=== PATIENT | female | born 1985 | race Caucasian/White ===

== ENCOUNTER 2018-04-05 13:57 | Emergency (ER) | payer SELFPAY ==
[2018-04-05] MEDS ORDERED: Ketorolac Tromethamine 30 MG/ML VIAL ONE (15:31)
--- NOTE | 2018-04-05 16:06 | RAD ---
4 VIEWS LEFT KNEE: Date: 04/05/18 COMPARISON: None. HISTORY: Left knee pain. FINDINGS: Four views of the left knee show no evidence of acute fracture or dislocation. No knee effusion is se en. No degenerative changes are present. IMPRESSION: Unremarkable exam. POS: [facility]
== END 2018-04-05 17:57 | disposition home or self-care (01) ==
LOC: ERS 13:57
DX: M25.562 Pain in left knee (principal)
CPT/HCPCS: 96372; J1885

== ENCOUNTER 2019-05-02 10:06 | Emergency (ER) | payer SELFPAY ==
[2019-05-02 10:40] LABS: Bilirubin 1+ (Negative); Blood, Urine Negative (Negative); Clarity Clear (Clear); Glucose, Urine (Dipstick) Normal (Negative); Leukocyte Negative Leu/uL (Negative); Nitrite 2+ (Negative); Pregnancy Test - Urine (BHCG) Negative (Negative); Pregu Control Background? CLEAR/WHITE (CLR/WHITE); Pregu Control Bar Appear? YES (CONTROL BAR); Protein, Urine (Dipstick) 20 mg/dL (Neg-Trace); Specific Gravity 1.014 (1.002-1.036); Urobilinogen 3 mg/dL (Less than 2)
[2019-05-02 10:41] LABS: Bacteria/HPF 1+ HPF (None Seen)
[2019-05-02 10:54] LABS: #Eosinphils 0.1 thou/uL (0.0-0.7); #Lymphocytes 1.3 thou/uL (1.20-3.40); #Monocytes 0.8 thou/uL (0.11-0.59); %Basophils 0.2 % (0.0-1.0); %Eosinophils 0.4 % (0.0-10.0); %Monocytes 5.6 % (0.0-10.0); %Neutrophils 84.7 % (42.0-75.0); Hemoglobin 12.8 g/dL (12.0-16.0); Mean Corpuscular HGB CONC 33.4 g/dL (32.0-36.0); Mean Corpuscular Hemoglobin 31.9 pg (27.0-31.0); Mean Corpuscular Volume 95.5 fL (78.0-98.0); Mean Platelet Volume 7.3 fL (7.4-10.4); Platelet Count 192 thou/uL (130-400); RBC Distribution Width 12.1 % (11.5-14.5); Red Blood Cell (RBC) Count 4.02 mill/uL (4.20-5.40); White Blood Cell (WBC) Count 14.1 thou/uL (4.8-10.8)
[2019-05-02 11:12] LABS: ALT (SGPT) 96 U/L (8-55); AST (SGOT) 41 U/L (5-34); Albumin 4.1 g/dL (3.5-5.0); Alkaline Phosphatase 74 U/L (40-110); Anion Gap 13 mmol/L (10-20); BUN (Urea Nitrogen) 12 mg/dL (7.0-18.7); Bilirubin, Total 0.6 mg/dL (0.2-1.2); Calc. Creatinine Clearance 0 mL/min (70-130); Carbon Dioxide 25 mmol/L (22-29); Chloride 104 mmol/L (98-107); Estimated GFR-MDRD 67; Globulin 2.5 g/dL (2.4-3.5); Glucose 102 mg/dL (70-105); Lipase 6 U/L (8-78); Potassium 4.4 mmol/L (3.5-5.1); Protein, Total 6.6 g/dL (6.0-8.3); Sodium 138 mmol/L (136-145)
--- NOTE | 2019-05-02 12:33 | CT ---
CT Stone Protocol HISTORY: Hematuria and flank pain. COMPARISON: None. FINDINGS: Subsegmental atelectatic changes seen in the lung bases. The liver, spleen, pancreas and gallbladder regions are unremarkable given the limitations of a nonco ntrast exam. Right and left adrenal glands and right and left kidneys are normal in size. There is no evidence of obstruction, renal or ureteral calculi. No perinephric inflammatory change. No significant periaortic or mesenteric adenopathy. CT of pelvis performed without contrast enhancement: There is some trace free fluid in the cul-de-sac . The appendix is normal. The bladder is normal in position. No bladder wall thickening. IMPRESSION: No acute findings of abdomen or pelvis.
[2019-05-02] MEDS ORDERED: cefTRIAXone\\ROCEPHIN 1 GM VIAL ONE ×2 (13:22→13:31)
[2019-05-02] MEDS ORDERED: Azithromycin 250 MG TAB ONE (13:22)
[2019-05-02] MEDS ORDERED: Lidocaine 1% PF 5 ML VIAL ONE (13:22)
[2019-05-02] MEDS ORDERED: Acetaminophen 500 MG TAB ONE ×2 (13:30)
[2019-05-02] MEDS ORDERED: Ondansetron PF 4 MG/2 ML Vial ONE (14:12)
[2019-05-03 18:41] LABS: Chlamydia by PCR Not Detected (NotDetected); GC by PCR Not Detected (NotDetected)
== END 2019-05-02 15:05 | disposition home or self-care (01) ==
LOC: ERS 10:06
DX: N12 Tubulo-interstitial nephritis, not specified as acute or chronic (principal)
CPT/HCPCS: 36415; 74176; 80053; 81003; 81015; 81025; 83690; 85025; 87491; 87591; 96365; 96375; J0696; J2001; J2405

== ENCOUNTER 2019-08-14 19:54 | Inpatient (IN) | payer BC, SELFPAY ==
[2019-08-14 22:40] VITALS: BMI 29.9
--- NOTE | 2019-08-14 22:48 | PDOC.FPRHP ---
- History of Present Illness Chief Complaint: shortness of breath, tx for PE History of Present Illness: 33yo F with h/o Hep C and IV drug abuse in remission presents as direct admit from outside ER for PE's. Patient states she has had 2 days of fatigue, chills, body aches. No fever, cough, congestion, rhinorrhea, n/v, abd michael, diarrhea/ constipation. She then experienced an acute onset of shortness of breath, substernal CP pulling sensation at 1100. Took 4 motrin, 4 ASA, and 2 Tums with resolution of pain on way to ED. Currently states is sx free. Patient states recent plane trip back from [facility] [place] on 07/25, 21 hour plane ride. Began ill with URI sxs 2 days prior to departure and thus spent entire plane trip in chair without ambulation. She then arrived back home with sxs and was seen at [facility] where she was diagnosed with Flu A and treated with Tamiflu x5d. She was quarantined for 4 days in a hotel room by her boss and to prevent spread of illness to family. Pt recovered from acute illness and was at baseline health until acute episode. Pt denies any recent surgery, no personal or family history of PE/DVT, no miscarriages, not on any hormonal therapy, and no longer smokes. ED Course: Elevated D dimer to 2.4, EKG WNL, CBC and CMP WNL. UPT negative. CTA with very small BL PE, difficult study. Started on Heparin gtt, transitioned to th lovenox and transferred to [facility]. - Allergies/Adverse Reactions Allergies Allergy/AdvReac Type Severity Reaction Status Date / Time No Known Drug Allergies Allergy Unverified 08/14/19 22:41 - Home Medications Medication Instructions Recorded Confirmed Type Doxepin HCl 100 mg PO HS 08/15/19 08/15/19 History - History PMHx: Untreated Hep C, 3 overdoses, afib 2/2 OD. PSHx: Tubal ligation, broken nose repair FHx: No family history of recurrent miscarriages, DVT, PE. Father with CHF , ERSD, HTN, CVA. No known blood disorders in family. Social: Previous IV drug abuse, states "used it all." Quit 2 years ago. Social drinker. Previous 1.5pack per week smoker for about 10 years, quit 2 years ago. Has 3 children. - Review of Systems General: denies: fever/chills, weight/appetite/sleep changes, fatigue Eyes: denies: vision changes ENT: denies: nasal congestion, rhinorrhea Respiratory: reports: shortness of breath (per HPI). denies: cough, congestion Cardiovascular: reports: chest pain (per HPI) Gastrointestinal: denies: nausea, vomiting, diarrhea, constipation Genitourinary: denies: incontinence, dysuria Skin: denies: rashes - Vital signs BP: 128/69 HR: 69 RR: 18 Tmax: 98 Pox: 98% on RA Wt: 81kg - Physical Exam Constitutional: NAD, awake, alert and oriented, well developed HEENT: PERRLA, EOMI, conjunctiva clear, grossly normal vision, grossly normal hearing, MMM Neck: supple, trachea midline Chest: no-tender to palpation Heart: RRR, normal S1/S2, no murmurs/rubs/gallops, pulses present, no edema Lungs: CTAB, no respiratory distress, good air movement, no rales/rhonchi, no wheezing, no retractions Abdomen: soft, non-tender, bowel sounds present, no masses/distention Musculoskeletal: normal structure, normal tone Neurological: no focal deficit Skin: no rash/lesions Heme/Lymphatic: no unusual bruising or bleeding Psychiatric: normal mood and affect, good judgment and insight, intact recent and remote memory FMR H&P: Results - Labs Result Diagrams: 08/15/19 04:11 08/15/19 04:11 - EKG Interpretation EKG: NSR, normal axis, good R wave progression, normal intervals. No acute ST or T wave changes. - Radiology Interpretation CT scan - chest Status: report reviewed by me (BL, small PE's) FMR H&P: A/P - Problem List (1) Pulmonary emboli Current Visit: Yes Status: Acute Code(s): I26.99 - OTHER PULMONARY EMBOLISM WITHOUT ACUTE COR PULMONALE Qualifiers: Chronicity: acute (2) Hepatitis C Current Visit: Yes Status: Chronic Code(s): B19.20 - UNSPECIFIED VIRAL HEPATITIS C WITHOUT HEPATIC COMA (3) History of intravenous drug abuse Current Visit: Yes Status: Chronic Code(s): F19.11 - OTHER PSYCHOACTIVE SUBSTANCE ABUSE, IN REMISSION - Plan 33yo CF with h/o Hep C and IV drug abuse in remission presents as direct admit for BL PE's. #Provoked, BL Pulmonary Emboli - diagnosed by CT at outside ED, small BL PE, has disk, recommend overread by our radiologist in AM - sxs of acute dyspnea and CP - started on heparin gtt and transitioned to lovenox in ED - VSS at admission, sx free - will transition to Eliquis in AM, will need 10mg BID x1wk to then continue Eliquis 5mg BID [id number] - Provoked with recent immobilization (flight from [facility] [place] and flu) and first occurrence - will order BL Doppler US to eval for DVT - will check TSH - Echo to exam for any heart strain and any valvular etiology 2/2 history of IV drug abuse #h/o IV drug abuse - in remission, clean fro 2 years - known Hep C, will order Hep C ab and quant RNA - Will order Hep B, HIV, and RPR screen #Hep C - Quant RNA, check LFTs - Will likely benefit from OP GI referral for possible tx Code: Full PCP: Govind Cr Diet: Regular VTE: Eliquis IVF: SL Disposition/LOS: Direct admit to tele for PE's. Anticipate LOS >48hrs. FMR H&P: Upper Level - Pertinent history 33 year old female with PMH significant for known Hep C, untreated, presented to outside ED with sudden onset chest pain. Patient went to [facility] [place] last month and returned on the 25 of July. She started with flu like symptoms. She was diagnosed with Influenza A at that time. Patient works as a healthcare account manager with . She was quarantined in a hotel at the request of her boss for four days after diagnosis. Initially, she was not given tamiflu, but she did not improve and was then prescribed tamiflu. Patient states 2 days ago she started with chills, fatigue, and body aches. She denies cough, congestion, shortness of breath at that time. Today at 11 AM patient started with sudden onset substernal, pulling chest pain associated with SOB. She took 4 ASA, 800 mg ibuprofen, and 2 tums which relieved her pain. She proceeded to go to urgent care for evaluation. Vital signs stable. D-dimer elevated, so CTA chest performed which showed no large PE's, only small bilateral distal PE's. It was documented as change attenuation most suggest of PE, but stated diagnosis of exclusion based on clinical picture. Patient was started on heparin drip and transitioned to therapeutic lovenox at 17:20. Patient denies any shortness of breath, chest pain, N/V currently. Patient denies personal history of clots. Patient's father had a stroke likely related to atherosclerosis, but no family history of clots. No family or personal history of recurrent miscarriages. Patient is an IV drug user who last used 2 years ago. She had 3 OD's in the past. Patient has no known cardiac history. Patient not on OCP's. She had tubal ligation previously. Of note, - Pertinent findings General: Alert and oriented x3. No acute distress. HEENT: MMM. Card: RRR, no murmur. Resp: CTA, no acute respiratory distress. Abdom: Soft, non-tender. Skin: Warm and dry. Ext: No cyanosis or edema. Negative Wilmer's sign. - Plan Date/Time: 08/14/19 578 I, Aidee Borges, have evaluated this patient and agree with findings/plan as outlined by business analytics intern resident. Pertinent changes/additions are listed here. Small peripheral pulmonary emboli, provoked - CTA chest reads as diagnosis of exclusion for PE, with moderate possibility - D-dimer elevated at 2.4 - Started on Heparin drip in outside ED, transitioned to therapeutic lovenox - Will transition to NOAC today; Eliquis - Given patient has reason for PE (recent travel, long flight) and first occurrence, will not obtain hypercaogulation panel at this time - Will obtain venous dopplers to further evaluate h/o IV drug abuse - In remission, clean fro 2 years - known Hep C, will order Hep C ab and quant RNA - Will order Hep B, HIV, and RPR screen - Will obtain echo to evaluate for vegetations as cause of PE's - 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 Anticipate LOS >48 hours.
[2019-08-15] MEDS ORDERED: Ondansetron ODT 4 MG TAB PO PRN (01:30)
[2019-08-15] MEDS ORDERED: Acetaminophen 325 MG TAB PO PRN (01:30)
[2019-08-15] MEDS ORDERED: Calcium Carbonate 500 MG ChewTAB PO PRN (01:30)
[2019-08-15 04:55] LABS: Band 13 % (5-11); Eosinophils 3 % (0-10); Hemoglobin 13.2 g/dL (12.0-16.0); Lymphocytes 26 % (21-51); MDiff Complete? YES; Mean Corpuscular HGB CONC 35.2 g/dL (32.0-36.0); Mean Corpuscular Hemoglobin 32.8 pg (27.0-31.0); Mean Corpuscular Volume 93.2 fL (78.0-98.0); Mean Platelet Volume 7.7 fL (7.4-10.4); Monocytes 5 % (0-10); Neutrophil 53 % (42-75); Platelet Count 223 thou/uL (130-400); Platelet Morphology Comment Appears Adequate; RBC Distribution Width 12.7 % (11.5-14.5); Red Blood Cell (RBC) Count 4.04 mill/uL (4.20-5.40); White Blood Cell (WBC) Count 5.4 thou/uL (4.8-10.8)
[2019-08-15] MEDS ORDERED: Apixaban 5 MG TAB PO SCH (05:00)
[2019-08-15 05:04] LABS: ALT (SGPT) 86 U/L (8-55); AST (SGOT) 51 U/L (5-34); Albumin 3.6 g/dL (3.5-5.0); Alkaline Phosphatase 62 U/L (40-110); Anion Gap 12 mmol/L (10-20); BUN (Urea Nitrogen) 11 mg/dL (7.0-18.7); Bilirubin, Total 0.4 mg/dL (0.2-1.2); Calc. Creatinine Clearance 141 mL/min (70-130); Calcium 8.6 mg/dL (7.8-10.44); Carbon Dioxide 21 mmol/L (22-29); Chloride 108 mmol/L (98-107); Estimated GFR-MDRD 87; Globulin 2.7 g/dL (2.4-3.5); Glucose 94 mg/dL (70-105); Protein, Total 6.3 g/dL (6.0-8.3); Sodium 137 mmol/L (136-145)
[2019-08-15 05:20] LABS: Syphilis Antibody Nonreactive (Nonreactive); Syphilis Antibody Index 0.15 S/CO (<1.00 Non-Reactive); Thyroid Stimulating Hormone 0.4835 uIU/mL (0.35-4.94)
[2019-08-15 05:21] LABS: Hep B Surf Ag Non-Reactive S/CO (NonReactive)
[2019-08-15 05:57] LABS: HBSAg Index 0.18 S/CO (0-0.99)
[2019-08-15 05:58] LABS: HBCM Index 0.24 S/CO (0-0.79); Hepatitis B Core IgM Abs Non-Reactive (NonReactive)
[2019-08-15 05:59] LABS: HIV (1/2) Antibody/Antigen Non-Reactive (NonReactive); HIV 1/2 INDEX 0.08 S/CO (<1.00)
[2019-08-15 06:01] LABS: Hep C IgG Ab Reflex HepC Qnt (NonReactive); Hep C Index 18.26 S/CO (0-0.79)
--- NOTE | 2019-08-15 06:39 | PDOC.FM ---
- Subjective Subjective: She says she has no shortness of breath. She is not having any pain today. She is eating and drinking well. - Objective MAR Reviewed: Yes Vital Signs & Weight: Vital Signs (12 hours) Temp Pulse Resp BP Pulse Ox 08/15/19 04:47 98.3 F 80 18 119/61 97 08/14/19 22:40 98 08/14/19 21:27 97.6 F 69 18 128/69 98 Weight Weight 84.64 kg I&O: 08/13/19 08/14/19 08/15/19 06:59 06:59 06:59 Intake Total 640 Balance 640 Result Diagrams: 08/15/19 04:11 08/15/19 04:11 EKG Reviewed by me: Yes (Sinus rhythm 80-90s) Phys Exam - Physical Examination Constitutional: NAD HEENT: moist MMs, sclera anicteric, oral pharynx no lesions Neck: no nodes, supple Respiratory: no wheezing, no rales, no rhonchi, clear to auscultation bilateral Cardiovascular: RRR, no significant murmur Gastrointestinal: soft, non-tender, positive bowel sounds Musculoskeletal: no edema, pulses present Neurological: moves all 4 limbs Lymphatic: no nodes Psychiatric: normal affect Skin: no rash, normal turgor Dx/Plan (1) Pulmonary emboli Code(s): I26.99 - OTHER PULMONARY EMBOLISM WITHOUT ACUTE COR PULMONALE Status : Acute Qualifiers: Chronicity: acute (2) Hepatitis C Code(s): B19.20 - UNSPECIFIED VIRAL HEPATITIS C WITHOUT HEPATIC COMA Status: Chronic (3) History of intravenous drug abuse Code(s): F19.11 - OTHER PSYCHOACTIVE SUBSTANCE ABUSE, IN REMISSION Status: Chronic - Plan Plan: 33yo CF with h/o Hep C and IV drug abuse in remission presents as direct admit for BL PE's. 1. Provoked, BL Pulmonary Emboli sxs of acute dyspnea and CP * VSS at admission, sx free * Diagnosed by CT at outside ED, small BL PE, has disk, * Recommend overread by our radiologist in AM * Started on heparin gtt and transitioned to lovenox in ED * Transitioned to Eliquis in AM, will need 10mg BID x1wk to then continue Eliquis 5mg BID [id number] * Provoked with recent immobilization (flight from [place] and flu) and first occurrence * BL Doppler US to eval for DVT * TSH wnl * Echo to exam for any heart strain and any valvular etiology 2/2 history of IV drug abuse 2. H/o IV drug abuse in remission, clean for 2 years * Known Hep C, will order Hep C ab and quant RNA * Hep B: Immune * Hep C: Positive * Hep A: pending * RPR: Neg 3. Hep C * Quant RNA ordered * LFTs slightly elevated * Would benefit from OP GI referral for possible tx 4. Transaminitis AST: 51, ALT: 86 * RUQ US: pending Code: Full PCP: Govidn Cr Diet: Regular VTE: Eliquis IVF: SL Disposition/LOS: Tele inpt for PE's. Anticipate LOS >48hrs. Will await echo results and consult GI.
[2019-08-15 07:04] LABS: HBSAB Concentration 1685.85 mIU/mL; Hep B Surf AB Reactive (NonReactive)
--- NOTE | 2019-08-15 07:38 | ULT ---
Bilateral lower extremity venous Doppler ultrasound: 08/15/2019 COMPARISON: None HISTORY: History of Pulmonary embolism TECHNIQUE: Multiplanar grayscale sonographic imaging of the venous structures of bilateral lower extr emities obtained with color flow and spectral analysis FINDINGS: Bilateral common femoral veins, greater saphenous veins, profunda femoral veins, femoral ve ins, popliteal veins, and posterior tibial veins are patent. There is normal blood flow, augmentation, and compression within the deep venous system bilaterally. No evidence for DVT on eithe r side IMPRESSION: No evidence for deep venous thrombosis of either lower extremity.
--- NOTE | 2019-08-15 12:33 | PRG ---
DATE OF SERVICE: 08/15/2019 Ms. Hyatt is a pleasant 33-year-old white female patient [facility] was discovered to have pulmonary emboli following a plane trip from [facility]. She was transferred to our center for higher level of care. This morning, she is sitting quietly in bed, in no distress. She denies at this time any shortness of breath or chest pain. We will transition her to DOACs in anticipation of discharge later today or tomorrow. Her DVT studies of both lower extremities were negative. Job ID: [id number]
[2019-08-15] MEDS ORDERED: FLU VACC QS2019-20(6MOS UP)/PF 60 MCG/0.5 ML SYRINGE IM ONE (21:00)
[2019-08-15] MEDS: Apixaban 5 MG TAB PO SCH (21:09)
--- NOTE | 2019-08-16 05:52 | PDOC.FM ---
- Subjective Subjective: Patient doing well this morning, has no complaints. Denies any chest pain, SOB, difficulty breathing, abdominal pain. She has not had any O2 requirement in past 24 hours. Patient now has insurance and wants to see if she can obtain Hepatitis C treatment as an outpatient. - Objective Vital Signs & Weight: Vital Signs (12 hours) Temp Pulse Resp BP Pulse Ox 08/16/19 03:47 98.9 F 66 20 108/55 L 97 08/15/19 23:36 98.3 F 08/15/19 20:27 99.1 F 79 18 126/82 94 L 08/15/19 20:00 94 L Weight Weight 82.327 kg I&O: 08/14/19 08/15/19 08/16/19 06:59 06:59 06:59 Intake Total 640 1340 Balance 640 1340 Result Diagrams: 08/15/19 04:11 08/15/19 04:11 Phys Exam - Physical Examination Constitutional: NAD HEENT: moist MMs Neck: no JVD, supple, full ROM Respiratory: no wheezing, no rhonchi, clear to auscultation bilateral Cardiovascular: RRR, no significant murmur Gastrointestinal: soft, positive bowel sounds Musculoskeletal: no edema, pulses present Neurological: normal sensation, moves all 4 limbs Psychiatric: normal affect, A&O x 3 Skin: no rash, normal turgor Dx/Plan (1) Pulmonary emboli Code(s): I26.99 - OTHER PULMONARY EMBOLISM WITHOUT ACUTE COR PULMONALE Status : Acute Qualifiers: Chronicity: acute (2) Hepatitis C Code(s): B19.20 - UNSPECIFIED VIRAL HEPATITIS C WITHOUT HEPATIC COMA Status: Chronic (3) History of intravenous drug abuse Code(s): F19.11 - OTHER PSYCHOACTIVE SUBSTANCE ABUSE, IN REMISSION Status: Chronic - Plan Plan: 33yo CF with h/o Hep C and IV drug abuse in remission presents as direct admit for BL PE's. 1. Provoked, BL Pulmonary Emboli sxs of acute dyspnea and CP * VSS at admission, sx free * Diagnosed by CT at outside ED, small BL PE, has disk, * Recommend overread by our radiologist in AM * Started on heparin gtt and transitioned to lovenox in ED * Transitioned to Eliquis on 08/15 AM, will need 10mg BID x1wk to then continue Eliquis 5mg BID [id number] * Provoked with recent immobilization (flight from [place] and flu) and first occurrence * BL Doppler US to eval for DVT * TSH wnl * Echo to exam for any heart strain and any valvular etiology 2/2 history of IV drug abuse, showed EF 60-65% 2. H/o IV drug abuse in remission, clean for 2 years * Known Hep C, will order Hep C ab and quant RNA * Hep B: Immune * Hep C: Positive * Hep A: Negative * RPR: Neg 3. Hep C * Quant RNA ordered * LFTs slightly elevated * Would benefit from Outpt GI referral for possible tx * RUQ U/S pending 4. Transaminitis AST: 51, ALT: 86 * RUQ US: pending Code: Full PCP: Govind Cr Diet: Regular VTE: Eliquis IVF: SL Disposition/LOS: Stable, admitted to Tele inpt for PE's. Will check with CM to make sure Eliquis covered. Will need to f/u with GI outpatient for Hep C therapy. Anticipate discharge later today, pending Abd U/S.
--- NOTE | 2019-08-16 08:33 | ULT ---
ADOMINAL ULTRASOUND COMPLETE: HISTORY: Transaminitis. FINDINGS: No evidence of gallstones. Liver echogenicity is coarse. Evidence for nonspecific hepatic parenchym al process. Common bile duct 0.5 cm. No gallbladder wall thickening or pericholecystic fluid. No f ocal liver masses. Visualized pancreas, IVC, aorta, and spleen are unremarkable. No renal hydroneph rosis. No abscess or abnormal fluid collection. IMPRESSION: Slightly coarse liver echogenicity. No evidence of gallstones or common duct dilatation. No evidenc e for other significant acute process. POS: [facility]
[2019-08-16 08:53] VITALS: BP 108/59; TEMP 98.2
[2019-08-16] MEDS: Apixaban 5 MG TAB PO SCH (08:55)
--- NOTE | 2019-08-16 11:32 | PRG ---
DATE OF SERVICE: 08/16/2019 Ms. Hyatt is fine this morning. She is awake, alert, and in good spirits. She has been transitioned to Eliquis 10 mg b.i.d. for several days and will reduce to Eliquis 5 mg b.i.d. She is having no chest pain, no shortness of breath, and will be discharged. Job ID: [id number]
--- NOTE | 2019-08-18 13:20 | DIS ---
DATE OF ADMISSION: 08/14/2019 DATE OF DISCHARGE: 08/16/2019 RESIDENT: Noy Dean DO ADMITTING ATTENDING: Oliverio Ascencio MD DISCHARGE ATTENDING: Oliverio Ascencio MD CONSULTATIONS: 1. Case Management. 2. Walking Program. PROCEDURES: 1. Bilateral lower extremity venous Doppler ultrasound. Findings: No evidence for DVT of either lower extremity. 2. Echocardiogram on August 15, 2019. Findings: Ejection fraction estimated at 60% to 65%. Left atrium normal size. Structurally normal mitral valve. No evidence of mitral regurgitation. No evidence of mitral valve stenosis. Structurally normal aortic valve with no significant stenosis or regurgitation. Trace tricuspid regurgitation. 3. Abdominal ultrasound on August 16, 2019. Findings: Slightly coarse liver echogenicity. No evidence of gallstones or common duct dilatation. No evidence for other significant acute process. PRIMARY DIAGNOSIS: Bilateral pulmonary emboli. SECONDARY DIAGNOSES: 1. Hepatitis C. 2. History of IV drug abuse. 3. Transaminitis. DISCHARGE MEDICATIONS: 1. Apixaban (Eliquis) 10 mg p.o. b.i.d. for 6 days. 2. Apixaban (Eliquis) 5 mg p.o. b.i.d., to be started after completion of 10 mg Eliquis course. 3. Doxepin 100 mg p.o. at bedtime. DISCONTINUED MEDICATIONS: None. HISTORY OF PRESENT ILLNESS/HOSPITAL COURSE: The patient is a 33-year-old female with a history of hepatitis C and IV drug abuse in remission, who presents for direct admission to [facility] from an outside ER for bilateral pulmonary embolisms seen on CTA at outside facility. The patient states she has had 2 days of fatigue, chills, body aches. Denies any fever, cough, congestion, rhinorrhea, nausea, vomiting, abdominal pain, diarrhea, or constipation. The patient says she then experienced an acute onset of shortness of breath, substernal chest pain with a pulling sensation at about 11 a.m. on day of admission. The patient took 4 Motrin, 4 aspirin, and 2 Tums with resolution of pain on the way to the emergency department. The patient currently stated on day of admission, she was symptom-free. The patient states she had a recent plane trip back from [facility] [place] on July 25, a 21 hour plane ride. She became ill with an upper respiratory infection 2 days prior to departure and spent the entire plane trip in a chair without ambulation. She then arrived back home with symptoms and was seen at [facility], where she was diagnosed with flu A and treated with Tamiflu for a 5 day course. She was quarantine for 4 days in a hotel room by her boss and to prevent spread of illness to the family. The patient recovered from the acute illness and was at baseline health until this acute episode. The patient denies any recent surgery, no personal or family history of PE or DVT, no miscarriages, not on any hormonal therapy, no longer smokes. In the emergency department, the patient was found to have an elevated D-dimer to 2.4, EKG normal, CBC and CMP normal. Urine test negative. CTA with very small bilateral pulmonary emboli, difficult study. The patient was started on heparin drip, transitioned to therapeutic Lovenox, and transferred to [facility]. Upon arrival to the floor, the patient was admitted to telemetry unit for continued evaluation and treatment. She was transitioned to Eliquis on the morning of August 15. This dose was started at 10 mg b.i.d., which she will need to continue for 7 days, and then be switched to Eliquis 5 mg b.i.d. for 3 months total course. This is the patient's 1st occurrence of a pulmonary embolism, thus thought to be provoked from the flight to [facility] [place]. A bilateral Doppler ultrasound was checked to evaluate for DVT, findings were negative. An echo was completed to evaluate for any heart strain or valvular etiology, results were normal. The patient has known hepatitis C, which was confirmed on lab work. She was negative for hepatitis A or hepatitis B, negative for HIV, negative for syphilis. The patient had a mild transaminitis with an AST of 51, ALT 86. TSH was found to be 0.483. On the morning of August 16, 2019, the patient was doing well. She had no respiratory complaints and had not required any oxygen throughout her stay. The patient was deemed stable for discharge back to home. Case management arranged for the patient's Eliquis to be covered by insurance. The patient will need follow up with GI outpatient to be set up for hepatitis C therapy. She plans to follow up with [facility]. DISPOSITION: Stable. DISCHARGE INSTRUCTIONS: 1. Location: Home. 2. Diet: Regular. 3. Activity: As tolerated. 4. Follow up at [facility] in 3 to 5 days. Job ID: [id number]
[2019-08-18 18:11] LABS: HCV log10 5.747 (.); Hep C PCR-Quant 559000 IU/mL (.)
== END 2019-08-16 12:29 | disposition home or self-care (01) | DRG 176 ==
LOC: 2NO 19:54
PROVIDERS: ADMIT Family Medicine; ATTEND Family Medicine
DX: I26.99 Other pulmonary embolism without acute cor pulmonale (principal); B19.20 Unspecified viral hepatitis C without hepatic coma; I48.91 Unspecified atrial fibrillation; I10 Essential (primary) hypertension; E11.9 Type 2 diabetes mellitus without complications; R74.0 Nonspecific elevation of levels of transaminase and lactic acid dehydrogenase [LDH]; F19.11 Other psychoactive substance abuse, in remission; Z98.51 Tubal ligation status; Z79.01 Long term (current) use of anticoagulants
CPT/HCPCS: 36415; 80053; 84443; 85007; 85027; 86705; 86706; 86708; 86780; 86803; 87340; 87389; 87521; 87522; 93306; 93970; 93975

== ENCOUNTER 2022-08-11 23:53 | Emergency (ER) | payer BC ==
[2022-08-12] MEDS ORDERED: Ondansetron PF 4 MG/2 ML Vial ONE (00:05)
== END 2022-08-12 02:32 | disposition home or self-care (01) ==
LOC: ERS 23:53
DX: R40.4 Transient alteration of awareness (principal); R23.0 Cyanosis; T40.411A Poisoning by fentanyl or fentanyl analogs, accidental (unintentional), initial encounter
CPT/HCPCS: 96374; J2405